=== PATIENT | female | born 1960 | race Native Hawaiian/Other Pacific Islander ===

== ENCOUNTER 2016-08-22 09:39 | Emergency (ER) | payer SELFPAY ==
[~2016-08-22] VITALS: Ht 165.1 cm; Wt 79.4 kg
[2016-08-22] MEDS ORDERED: NACL 0.9% 1,000 ML IV SCH (09:49)
[2016-08-22] MEDS ORDERED: FAMOTIDINE 20 MG/2 ML VIAL IVP ONE (09:50)
[2016-08-22] MEDS ORDERED: ONDANSETRON 4 MG/2 ML VIAL IVP ONE (09:50)
[2016-08-22 09:54] VITALS: BP 181/78
[2016-08-22] MEDS ORDERED: METF850T PO (09:59)
[2016-08-22] MEDS ORDERED: METO25TE2 PO (09:59)
[2016-08-22 10:16] LABS: BASOPHILS # (AUTO) 0.5 K/uL (0.00-0.22); BASOPHILS % (AUTO) 4.6 % (0.0-2.0); EOSINOPHILS # (AUTO) 0.1 K/uL (0-0.4); EOSINOPHILS % (AUTO) 0.6 % (0.0-4.0); HEMATOCRIT 46.2 % (36-48); HEMOGLOBIN 15.3 g/dL (12.0-16.0); LYMPHOCYTES # (AUTO) 2.7 K/uL (2.5-16.5); LYMPHOCYTES % (AUTO) 27.2 % (20.5-51.1); MEAN CORPUSCULAR HEMOGLOBIN 29 pg (27-31); MEAN CORPUSCULAR HGB CONC 33 g/dL (33-37); MEAN CORPUSCULAR VOLUME 88 fL (80-94); MONOCYTES # (AUTO) 0.8 K/uL (0.8-1.0); MONOCYTES % (AUTO) 8.2 % (1.7-9.3); NEUTROPHILS # (AUTO) 5.8 K/uL (1.8-7.7); NEUTROPHILS % (AUTO) 59.4 % (42.2-75.2); PLATELET COUNT (AUTO) 269 K/uL (140-450); RED BLOOD CELL COUNT(AUTO) 5.27 MIL/uL (4.20-5.40); RED CELL DISTRIBUTION WIDTH 13.2 % (11.6-13.7); WHITE BLOOD COUNT (AUTO) 9.9 K/uL (4.8-10.8)
[2016-08-22 10:39] LABS: ANION GAP 12.1 (8-16); CARBON DIOXIDE 29.7 mmol/L (21-32); CREATININE 0.9 mg/dL (0.6-1.3); POTASSIUM 3.8 mmol/L (3.5-5.1)
[2016-08-22 13:36] LABS: APPEARANCE,URINE CLEAR (CLEAR); BILIRUBIN,URINE NEGATIVE (NEGATIVE); BLOOD, URINE NEGATIVE (NEGATIVE); COLOR,URINE YELLOW (YELLOW); LEUKOCYTE ESTERASE ,URINE NEGATIVE (NEGATIVE); NITRITE, URINE NEGATIVE (NEGATIVE); PROTEIN,URINE NEGATIVE (NEGATIVE); UGLUCOSE NEGATIVE (NEGATIVE); UROBILINOGEN,URINE 0.2 EU/dL (0.2 - 1)
--- NOTE | 2016-08-22 14:46 | NUR ---
Patient ambulated to bed 4. RN evaluating patient at bedside.
[2016-08-22] MEDS ORDERED: NACL 0.9% 1,000 ML IV ONE (14:50)
--- NOTE | 2016-08-22 15:01 | NUR ---
PATIENT PRESENTS TO ED WITH VOMITING, ABD PAIN, AND DIZZINESS X3 DAYS; DENIES DIARRHEA; SKIN IS PINK/WARM/DRY; AAOX4 WITH EVEN AND STEADY GAIT; LUNGS CLEAR BL; HR EVEN AND REGULAR; PT DENIES ANY FEVER, CP, SOB, OR COUGH AT THIS TIME; PATIENT STATES PAIN OF 7/10 AT THIS TIME; VSS; PATIENT POSITIONED FOR COMFORT; HOB ELEVATED; BEDRAILS UP X2; BED DOWN. ER MD MADE AWARE OF PT STATUS.
[2016-08-22] MEDS ORDERED: ONDANSETRON 4 MG/2 ML VIAL ONE (15:55)
[2016-08-22] MEDS ORDERED: FAMOTIDINE 20 MG/2 ML VIAL ONE (15:55)
[2016-08-22 17:27] VITALS: BP 138/78
--- NOTE | 2016-08-22 17:27 | NUR ---
Patient discharged with v/s stable. Written and verbal after care instructions given and explained. Patient alert, oriented and verbalized understanding of instructions. Ambulatory with steady gait. All questions addressed prior to discharge. ID band removed. Patient advised to follow up with PMD. Rx of ANTIVERT, ZOFRAN given. Patient educated on indication of medication including possible reaction and side effects. Opportunity to ask questions provided and answered.
== END 2016-08-22 17:27 | disposition home or self-care (01) ==
LOC: MED 09:39
DX: E86.0 Dehydration (principal); R10.13 Epigastric pain; E11.9 Type 2 diabetes mellitus without complications
CPT/HCPCS: 36415; 80053; 81003; 82150; 83690; 85025; 96361; 96374; 96375; 99285; J2405; J3490; J7030